=== PATIENT | male | born 1970 | race Hispanic/Latino ===

== ENCOUNTER 2020-02-09 01:08 | Emergency (ER) | payer BC ==
[2020-02-09 01:48] LABS: #Eosinphils 0.1 thou/uL (0.0-0.7); #Lymphocytes 1.9 thou/uL (1.20-3.40); #Monocytes 0.5 thou/uL (0.11-0.59); #Neutrophils 3.6 thou/uL (1.40-6.50); %Basophils 0.5 % (0.0-1.0); %Lymphocytes 31.1 % (21.0-51.0); %Monocytes 7.5 % (0.0-10.0); %Neutrophils 58.9 % (42.0-75.0); Hemoglobin 16.6 g/dL (14.0-18.0); Mean Corpuscular HGB CONC 35.3 g/dL (32.0-36.0); Mean Corpuscular Hemoglobin 32.1 pg (27.0-31.0); Mean Platelet Volume 6.8 fL (7.4-10.4); Platelet Count 222 thou/uL (130-400); RBC Distribution Width 11.8 % (11.5-14.5); Red Blood Cell (RBC) Count 5.17 mill/uL (4.70-6.10); White Blood Cell (WBC) Count 6.1 thou/uL (4.8-10.8)
[2020-02-09 02:08] LABS: ALT (SGPT) 28 U/L (8-55); AST (SGOT) 19 U/L (5-34); Albumin 4.4 g/dL (3.5-5.0); Alkaline Phosphatase 40 U/L (40-110); Anion Gap 14 mmol/L (10-20); BUN (Urea Nitrogen) 13 mg/dL (8.9-20.6); Bilirubin, Total 0.5 mg/dL (0.2-1.2); Calc. Creatinine Clearance 0 mL/min (70-130); Calcium 8.8 mg/dL (7.8-10.44); Carbon Dioxide 23 mmol/L (22-29); Chloride 104 mmol/L (98-107); Estimated GFR-MDRD 67; Globulin 2.8 g/dL (2.4-3.5); Glucose 160 mg/dL (70-105); Potassium 4.1 mmol/L (3.5-5.1); Protein, Total 7.2 g/dL (6.0-8.3); Sodium 137 mmol/L (136-145)
[2020-02-09] MEDS ORDERED: Lidocaine Viscous Sol 2% 15 ml UD Cup ONE (03:08)
[2020-02-09] MEDS ORDERED: Mag-Al 1200 mg/1200 mg/30 ML UDCUP ONE (03:09)
== END 2020-02-09 03:22 | disposition home or self-care (01) ==
LOC: ERS 01:08 → EDBD 01:08 → ERS 03:22
DX: R11.0 Nausea (principal); R20.2 Paresthesia of skin
CPT/HCPCS: 36415; 80053; 85025; 93005